=== PATIENT | female | born 1975 | race Two or more races ===

== ENCOUNTER 2025-10-17 09:14 | Emergency (ER) | payer OTHER ==
[~2025-10-17] VITALS: Ht 170.2 cm; Wt 77.1 kg
[2025-10-17] MEDS ORDERED: SYNTHROID50 MCG PO (09:23)
[2025-10-17] MEDS ORDERED: 0.9 % SODIUM CHLORIDE 1,000 ML IV STA (09:41)
[2025-10-17] MEDS ORDERED: MECLIZINE HCL 25 MG TABLET PO ONE (09:45)
[2025-10-17] MEDS ORDERED: DEXAMETHASONE SODIUM PHOSPHATE 4 MG/ML VIAL IV ONE (09:45)
[2025-10-17] MEDS ORDERED: ONDANSETRON HCL 2 MG/ML VIAL IV ONE (09:45)
[2025-10-17] MEDS ORDERED: FAMOTIDINE/PF 20 MG/2 ML VIAL IV ONE (09:45)
[2025-10-17 10:56] LABS: BASO % 0.0 % (0.1-1.2); EOS # 0.24 (0.04-0.54); EOS % 6.0 % (0.7-7.0); LYMPH # 1.16 (1.18-3.74); LYMPH % 28.9 % (19.3-53.1); MEAN PLATELET VOLUME 10.50 fl (9.4-12.4); MONO # 0.34 (0.24-0.82); MONO % 8.5 % (4.7-12.5); NEUT # 2.27 (1.56-6.13); NEUT % 56.6 % (34.0-71.1); RED CELL DISTRIBUTION WIDTH 13.5 % (11.6-14.4)
[2025-10-17 10:58] LABS: URINE APPEARANCE Cloudy; URINE BILIRRUBIN Negative (NEGATIVE); URINE BLOOD Negative; URINE COLOR Yellow; URINE GLUCOSE Negative (NEGATIVE); URINE KETONE Negative (NEGATIVE); URINE LEUKOCYTE Negative; URINE NITRATE Negative; URINE PROTEIN Negative (NEGATIVE); URINE UROBILINOGEN 1.0 E.U./dl
[2025-10-17 10:59] LABS: URINE BACTERIA 146.3 uL (0.0-1933); URINE EPITHELIAL CELLS 14.3 uL (0.0-38.8); URINE WBC 4.4 uL (0.0-23.2)
[2025-10-17 11:06] LABS: URINE CAST 0.00 uL (0.0-1.40); URINE RBC 0.4 uL (0.0-20.8)
[2025-10-17 11:20] LABS: INR 1.08
[2025-10-17 11:24] LABS: ALT/SGPT 25.0 U/L (12-78); AST/SGOT 22.0 U/L (15-37); BILIRUBIN TOTAL 0.43 mg/dL (0.3-1.2); BILIRUBIN,CONJUGATED 0.15 mg/dL (0.0-0.2); BUN CREA RATIO 15.0 (7.0-25.0); CREATININE SERUM 0.6 mg/dL (0.55-1.02); GFR 105.82; GLUCOSE FASTING 90.0 mg/dL (65-100); OSMOLALITY SERUM 283.0 MOSM/KG (275-295); PHOSPHOKINASE CREATININE 452.0 U/L (26-192)
[2025-10-17] MEDS ORDERED: PROTONIX40 MG PO (14:58)
[2025-10-17] MEDS ORDERED: IRON325 MG PO (14:58)
== END 2025-10-17 15:25 | disposition home or self-care (01) ==
LOC: ER 09:15
PROVIDERS: General Practice
DX: D64.89 Other specified anemias (principal); R42 Dizziness and giddiness; E03.9 Hypothyroidism, unspecified